=== PATIENT | male | born 1950 | race Caucasian/White ===

== ENCOUNTER 2019-04-16 21:32 | Inpatient (IN) | payer MEDICARE, OTHER ==
[~2019-04-16] VITALS: Ht 165.1 cm; Wt 87.3 kg
[~2019-04-16 21:32] MED LIST: ALLERGY SHOT IM; HYDROCODONE-AP1 EAC6 PO; KEFLEX500 MG PO; TOPROL XL25 MG PO; XARELTO10 MG PO; XARELTO15 MG PO; ZYRTEC10 MG PO
[2019-04-16 21:38] VITALS: BP 127/76
[2019-04-16] MEDS ORDERED: ELIQUIS2.5 MG PO (21:45)
[2019-04-16] MEDS ORDERED: LIPITOR 20 MG T20 M1 PO (21:45)
[2019-04-16] MEDS ORDERED: OLOPATADINE H30.5 GM (21:48)
[2019-04-16] MEDS ORDERED: FLUNISOLIDE25 ML NASAL (21:48)
[2019-04-16] MEDS ORDERED: FLONASE 0.05%50 MCG NARES (21:48)
[2019-04-16 21:54] LABS: ABSOLUTE BASOPHILS 0.1 thou/uL (0.0-0.2); ABSOLUTE LYMPHOCYTES 1.7 thou/uL (0.8-5.3); ABSOLUTE MONOCYTES 0.8 thou/uL (0.0-1.2); ABSOLUTE NEUTROPHILS 4.2 thou/uL (1.6-8.1); BASOPHILS 1.1 %; EOSINOPHILS 0.7 %; HEMATOCRIT 42.8 % (42.0-52.0); HEMOGLOBIN 15.2 gm/dL (14.0-18.0); LYMPHOCYTES 25.1 %; MCHC 35.5 g/dL (28.0-37.0); MCV 89.9 fL (80.0-100.0); MONOCYTES 11.3 %; MPV 7.9 fl. (7.2-11.1); NUCLEATED RBCS 0 /100WBC; PLATELET COUNT* 152 thou/uL (150-400); POLYS 61.8 %; RBC 4.77 mil/uL (4.50-6.00); RDW-CV 14.1 % (10.5-14.5); WBC 6.7 thou/uL (4.0-11.0)
[2019-04-16 22:10] LABS: APTT 28.9 Seconds (25.0-31.3); PROTIME 10.4 Seconds (9.20-11.50)
[2019-04-16 22:14] LABS: CALCIUM 9.8 mg/dL (8.5-10.1); POTASSIUM 3.6 mmol/L (3.5-5.1)
[2019-04-16 22:25] LABS: ALBUMIN 4.2 g/dL (3.4-5.0); TOTAL BILIRUBIN 0.6 mg/dL (<0.1-1.0); TOTAL PROTEIN 8.2 g/dL (6.4-8.2)
[2019-04-16 23:43] VITALS: BP 157/103
[2019-04-17 00:03] VITALS: BP 158/93
[2019-04-17 04:00] VITALS: BP 126/77
--- NOTE | 2019-04-17 07:42 | NUR ---
RECEIEVED PT FROM ED PER CART AT APPROX 0003. PT IS AWAKE AND ORIENTED X4. VSS ON 2L OF O2/NC. PT IS TRACING AFIB ON THE MALT HOUSE LOADER, RATE IS MORE CONTROLLED-CARDIZEM DRIP INFUSING AT 10ml/HR. PT IS ADVISED ON THE USE OF CALL LIGHT AND ON ROOM SET UP. FALL PRECAUTIONS IN PLACE. PT IS CLOSELY MONITORED.
[2019-04-17 08:00] VITALS: BP 127/77; BP 132/64
[2019-04-17 10:23] LABS: CHOLESTEROL 182 mg/dL (<200); HDL CHOLESTEROL 83 mg/dL (>40); LDL CHOLESTEROL 77 mg/dL (<100); TC:HDL 2.2 Ratio (Not establshd); TRIGLYCERIDE 110 mg/dL (<150); VLDL 22 mg/dL (<40)
[2019-04-17 10:31] LABS: SERUM ASSESSMENT Clear
--- NOTE | 2019-04-17 11:03 | EKG ---
[place] [address] ELECTROCARDIOGRAM REPORT Name: VISHAL BRISCOE Room: [address] ADM IN .R.#: [id number] Admission: 04/16/19 Attend Phys: John Greenberg MD Discharge: Date of : 52 Report #: [id number] THIS REPORT FOR: //name// [facility] ED Test Date: 2019-04-16 Test Time: 21:39:06 Pat Name: VISHAL BRISCOE Department: Room: [facility] Gender: M Sales Representative Education Courses: [place] : 1950 Requested By: Martine Tai Order Number: [id number] MD: Felipe Perdue Measurements Intervals [place] Rate: 149 P: NM: QRS: -65 QRSD: 107 T: 46 QT: 305 QTc: 480 Interpretive Statements Atrial fibrillation Left anterior fascicular block Abnormal R-wave progression, late transition Borderline prolonged QT interval Compared to ECG 10/13/2013 13:22:01 Sinus tachycardia no longer present Electronically Signed On 04-17-2019 11:03:02 BONDERIZER OPERATOR by Felipe Perdue [email or web address] <ELECTRONICALLY SIGNED> By: Felipe Perdue MD, FACC 04/17/19 1103 38 38 Felipe Perdue MD, FAC /EPI
--- NOTE | 2019-04-17 14:10 | NUR ---
MET WITH PT AND TO DISCUSS HOME SITUATION/DC PLANNING. PT LIVES WITH . IS INDEPENDENT AND ACTIVE, USES CPAP AND O2 THRU [facility] BUT STATES OWNS THE CONCENTRATOR NOW. HASN'T HAD HH OR BEEN TO SNF. HE PLANS TO RETURN HOME AT DC. DISCUSSED [employer] FOR DISCOUNTS ON SCRIPTS AND GAVE INFO ON [facility] FOR AFIB. WILL FOLLOW
--- NOTE | 2019-04-17 15:03 | 2DMMODE ---
[place] [address] 2 D/M-MODE ECHOCARDIOGRAM Name: RACHNAVISHAL J Room: [address] IN [facility]#: [id number] Admission: 04/16/19 Attend Phys: John Greenberg, Discharge: Date of : 52 Date of Service: 04/17/19 1502 Report #: [id number] THIS REPORT FOR: //name// APPROVED REPORT Study performed: 04/17/2019 10:31:10 EXAM: Comprehensive 2D, Doppler, and color-flow Echocardiogram Patient Location: In-Patient Room #: [facility] BSA: 1.91 HR: 63 bpm BP: 132/64 mmHg Rhythm: NSR Other Information Study Quality: Good Indications Cardiomegaly Tachycardia 2D Dimensions IVSd: 13.85 (7-11mm) LVOT Diam: 21.14 (18-24mm) LVDd: 44.73 mm PWd: 10.16 (7-11mm) Ascending Ao: 36.25 (22-36mm) LVDs: 27.50 (25-40mm) Aortic Root: 34.95 mm Volumes Left Atrial Volume (Systole) LA ESV Index: 26.90 mL/m2 Aortic Valve AoV Peak Cedric.: 1.16 m/s AO Peak Gr.: 5.39 mmHg LVOT Max P.72 mmHg AO Mean Gr.: 3.16 mmHg LVOT Mean P.29 mmHg LVOT Max V: 0.83 m/s AO V2 VTI: 26.54 cm LVOT Mean V: 0.52 m/s WARD (VTI): 2.56 cm2 LVOT V1 VTI: 19.37 cm Mitral Valve E/A Ratio: 1.00 MV Decel. Time: 196.83 [place] [address] 2 D/M-MODE ECHOCARDIOGRAM Name: VISHAL BRISCOE Room: [address] IN .R.#: [id number] Admission: 04/16/19 Attend Phys: John Greenberg, Discharge: Date of : 52 Date of Service: 04/17/19 1502 Report #: [id number] MV E Max Cedric.: 0.76 m/s MV PHT: 57.08 ms MVA (PHT): 3.85 cm2 TDI E/Lateral E': 7.60 E/Medial E': 9.50 Medial E' Cedric.: 0.08 m/s Lateral E' Cedric.: 0.10 m/s Pulmonary Valve PV Peak Cedric.: 0.65 m/s PV Peak Gr.: 1.71 mmHg Tricuspid Valve RAP Estimate: 5.00 mmHg TR Peak Gr.: 25.85 mmHg RVSP: 30.00 mmHg PA Pressure: 30.00 mmHg Left Ventricle The left ventricle is normal size. There is normal LV segmental wall motion. There is normal left ventricular wall thickness. Left ventricular systolic function is normal. LVEF is 55-60%. Transmitral Doppler flow pattern suggests impaired LV relaxation. Right Ventricle Right ventricle is mildly dilated. The right ventricular systolic function is normal. Atria Left atrium is mildly dilated. Right atrium is mildly dilated. Aortic Valve The aortic valve is normal in structure. No aortic regurgitation is present. There is no aortic valvular stenosis. Mitral Valve The mitral valve is normal in structure. There is no mitral valve regurgitation noted. No evidence of mitral valve stenosis. Tricuspid Valve The tricuspid valve is normal in structure. Trace tricuspid regurgitation. The RVSP is 30-35 mmHg. Pulmonic Valve The pulmonary valve is normal in structure. There is no pulmonic [place] [address] 2 D/M-MODE ECHOCARDIOGRAM Name: VISHAL BRISCOE Room: [address] IN [facility]#: [id number] Admission: 04/16/19 Attend Phys: John Greenberg, Discharge: Date of : 52 Date of Service: 04/17/19 1502 Report #: [id number] Great Vessels The aortic root is normal in size. IVC is normal in size and collapses >50% with inspiration. Pericardium There is no pericardial effusion. <Conclusion> The left ventricle is normal size. There is normal left ventricular wall thickness. Left ventricular systolic function is normal. LVEF is 55-60%. Transmitral Doppler flow pattern suggests impaired LV relaxation. Left atrium is mildly dilated. Right atrium is mildly dilated. Right ventricle is mildly dilated. Trace tricuspid regurgitation. The RVSP is 30-35 mmHg. IVC is normal in size and collapses >50% with inspiration. <ELECTRONICALLY SIGNED> By: Felipe Perdue MD, FACC 04/17/19 1502 1502 150 Felipe Perdue MD, FACC /INF
[2019-04-17 16:49] VITALS: BP 137/77
[2019-04-17 20:00] VITALS: BP 153/87
[2019-04-18] VITALS: BP 153/88
--- NOTE | 2019-04-18 03:42 | NUR ---
ASSUMED PT CARE AT APPROX 1930. PT IS AWAKE AND ORIENTED X4. VSS ON 2L OF O2, PT WEARS HOME CPAP AT HS. PT DENIES PAIN/DISCOMFORT. PE ELECTRICAL ENGINEER IN PLACE TRACING SR. PT IS ABLE TO SLEEP MOST OF THE NIGHT. CALL LIGHT WITHIN REACH. HOURLY ROUNDING DONE FOR PT SAFETY.
[2019-04-18 04:00] VITALS: BP 151/95
[2019-04-18 07:59] VITALS: BP 144/88
--- NOTE | 2019-04-18 09:12 | NUR ---
ASSUMED CARE OF PT THIS AM AROUND 0715- FLEECER IN PLACE ORDERED, TRACING SR- UPON ASSESSMENT PT NOTED TO BE RESTING IN BED- PT A&O X4- CONTINENT OF BOWEL AND BLADDER- UP AD-CARO IN ROOM, STEADY GAIT NOTED-DIMINISHED LUNG SOUNDS NOTED, RESP EVEN AND UN-LABORED- VSS, O2 SAT 95% ON CPAP THIS AM- ABD SOFT/ROUND/NON-TENDER, BS X4 QUADS- LAST BM REPORTED 04/17/19- IV NOTED TO LEFT AC INTACT AND SL- SHOWER NOTED THIS AM- GOOD PO INTAKE NOTED THIS AM WITH BREAKFAST- PT DENIES ANY C/O PAIN/DISCOMFORT AT THIS TIME-CALL LIGHT AND PERSONAL BELONGINGS WITH IN REACH- PT MAKES NEEDS KNOWN- ALL NEEDS MET AT THIS TIME-WCTM
[2019-04-18 12:00] VITALS: BP 145/98
[2019-04-18] MEDS ORDERED: SORINE 80 MG TA80 M1 PO (12:11)
[2019-04-18] MEDS ORDERED: ELIQUIS5 MG PO (12:11)
--- NOTE | 2019-04-18 12:18 | NUR ---
SPOKE WITH PT AND RE: SCRIPTS AND TO CALL CM IF HAVE ISSUES GETTING THEM FILLE IE; PRIOR AUTH ISSUES. DID TELL PT COST OF SOTOLOL ON [employer]. NO OTHER DC NEEDS ID'D
[2019-04-18 14:27] VITALS: BP 145/98
[2019-04-18] MEDS ORDERED: CARDIZEM CD 18180 M3 PO ×2 (15:52→15:58)
--- NOTE | 2019-04-18 17:01 | EKG ---
[place] [address] ELECTROCARDIOGRAM REPORT Name: VISHAL BRISCOE Room: [address] ADM IN M.R.#: [id number] Admission: 04/16/19 Attend Phys: John Greenberg MD Discharge: Date of : 52 Report #: [id number] THIS REPORT FOR: //name// [facility] Test Date: 2019-04-18 Test Time: 09:43:09 Pat Name: VISHAL BRISCOE Department: Room: [address] Gender: M Stave Mill Hand: RT : 1950 Requested By: Sigrid Mckeon Order Number: [id number] MD: Felipe Perdue Measurements Intervals [place] Rate: 75 P: 26 AL: 135 QRS: -70 QRSD: 115 T: -18 QT: 399 QTc: 446 Interpretive Statements Sinus rhythm Left anterior fascicular block Borderline T abnormalities, inferior leads Minimal ST elevation, anterior leads Compared to ECG 04/16/2019 21:39:06 T-wave abnormality now present ST (T wave) deviation now present Atrial fibrillation no longer present Electronically Signed On 04-18-2019 17:00:54 COLLECTIONS ANALYST by Felipe Perdue [email or web address] <ELECTRONICALLY SIGNED> By: Felipe Perdue MD, FACC 04/18/19 1700 0943 0943 Felipe Perdue MD, FACC /EPI
== END 2019-04-18 17:30 | disposition home or self-care (01) | DRG 309 ==
LOC: M.ERS 21:32 → M.TBA-ER 22:35 → M.2W 22:35
PROVIDERS: Internal Medicine; Personal Emergency Response Attendant; Registered Nurse; ADMIT Internal Medicine
PROC: 5A09357 Assistance with Respiratory Ventilation, Less than 24 Consecutive Hours, Continuous Positive Airway Pressure (ICD-10-PCS; principal; 2019-04-17)
PROC: 5A09357 Assistance with Respiratory Ventilation, Less than 24 Consecutive Hours, Continuous Positive Airway Pressure (ICD-10-PCS; 2019-04-18)
DX: I48.0 Paroxysmal atrial fibrillation (principal); D68.69 Other thrombophilia; G47.33 Obstructive sleep apnea (adult) (pediatric); E78.5 Hyperlipidemia, unspecified; E78.00 Pure hypercholesterolemia, unspecified; Z86.711 Personal history of pulmonary embolism; Z86.718 Personal history of other venous thrombosis and embolism; Z87.891 Personal history of nicotine dependence; Z79.899 Other long term (current) drug therapy

== ENCOUNTER 2019-10-13 14:17 | Inpatient (IN) | payer MEDICARE, OTHER ==
[~2019-10-13] VITALS: Ht 165.1 cm; Wt 93.0 kg
[~2019-10-13 14:17] MED LIST changes: +CARDIZEM CD 18180 M3 PO; +ELIQUIS2.5 MG PO; +ELIQUIS5 MG PO; +FLONASE 0.05%50 MCG NARES; +FLUNISOLIDE25 ML NASAL; +LIPITOR 20 MG T20 M1 PO; +OLOPATADINE H30.5 GM; +SORINE 80 MG TA80 M1 PO
[2019-10-13 14:23] VITALS: BP 161/103
[2019-10-13] MEDS ORDERED: CLARITIN10 M3 PO (14:36)
[2019-10-13 14:40] LABS: ABSOLUTE EOSINOPHILS 0.1 thou/uL (0.0-0.7); ABSOLUTE MONOCYTES 0.5 thou/uL (0.0-1.2); ABSOLUTE NEUTROPHILS 2.9 thou/uL (1.6-8.1); BASOPHILS 0.8 %; EOSINOPHILS 1.8 %; HEMATOCRIT 43.8 % (42.0-52.0); HEMOGLOBIN 15.7 gm/dL (14.0-18.0); LYMPHOCYTES 21.1 %; MCH 33.4 pg (26.0-34.0); MCHC 35.8 g/dL (28.0-37.0); MCV 93.4 fL (80.0-100.0); MONOCYTES 11.3 %; MPV 7.9 fl. (7.2-11.1); NUCLEATED RBCS 0 /100WBC; PLATELET COUNT* 146 thou/uL (150-400); RBC 4.69 mil/uL (4.50-6.00); RDW-CV 14.4 % (10.5-14.5); WBC 4.5 thou/uL (4.0-11.0)
[2019-10-13 14:54] LABS: CALCIUM 9.1 mg/dL (8.5-10.1); CREATININE 1.1 mg/dL (0.6-1.3)
[2019-10-13 14:57] LABS: MAGNESIUM 1.6 mg/dL (1.8-2.4); TOTAL BILIRUBIN 0.5 mg/dL (<0.1-1.0); TOTAL PROTEIN 8.5 g/dL (6.4-8.2)
[2019-10-13 17:20] VITALS: BP 156/97
[2019-10-13 17:43] VITALS: BP 154/105
[2019-10-13] MEDS ORDERED: CENTRUM MEN'S1 EACH PO (17:57)
--- NOTE | 2019-10-13 18:42 | NUR ---
ASSUMED CARE OF PT FROM ER. PT IS ALERT AND HAS NO CO OF PAIN OR NAUSEA. PT WAS EDUCATED ON FALL SAFETY AND USING THE CALL LIGHT FOR ASSISTANCE. WILL CONTINUE TO MONITOR.
[2019-10-13 20:00] VITALS: BP 179/95
[2019-10-13 23:56] VITALS: BP 173/96
[2019-10-14 04:00] VITALS: BP 174/90
[2019-10-14 04:18] LABS: ABSOLUTE EOSINOPHILS 0.2 thou/uL (0.0-0.7); ABSOLUTE LYMPHOCYTES 1.4 thou/uL (0.8-5.3); ABSOLUTE MONOCYTES 0.7 thou/uL (0.0-1.2); ABSOLUTE NEUTROPHILS 3.6 thou/uL (1.6-8.1); BASOPHILS 0.7 %; EOSINOPHILS 3.5 %; HEMATOCRIT 40.9 % (42.0-52.0); HEMOGLOBIN 14.6 gm/dL (14.0-18.0); LYMPHOCYTES 23.7 %; MCH 33.2 pg (26.0-34.0); MCHC 35.7 g/dL (28.0-37.0); MONOCYTES 11.6 %; MPV 8.1 fl. (7.2-11.1); NUCLEATED RBCS 0 /100WBC; PLATELET COUNT* 133 thou/uL (150-400); POLYS 60.5 %; RDW-CV 13.9 % (10.5-14.5); WBC 5.9 thou/uL (4.0-11.0)
[2019-10-14 04:36] LABS: ALBUMIN 3.7 g/dL (3.4-5.0); CALCIUM 8.7 mg/dL (8.5-10.1); CREATININE 0.9 mg/dL (0.6-1.3); POTASSIUM 3.5 mmol/L (3.5-5.1); TOTAL BILIRUBIN 0.9 mg/dL (<0.1-1.0); TOTAL PROTEIN 7.5 g/dL (6.4-8.2)
--- NOTE | 2019-10-14 04:50 | NUR ---
ASSUMED PT CARE AT 1999. AOX4, UP AD CARO, DENIES CHEST PAIN. O2 SAT 90'S 2L NC. PT USE CPAP AT NIGHT, BUT DIDNT BRING HIS MACHINE. PT STATE UNABLE TO GET SLEEP WITHOUT A CPAP. PAGED , ORDERED RECEIVED. RT SETUP AN AUTOPAP. PT BP IS HIGH. 1X HYDRALAZINE GIVEN ORDERED. PT NPO FOR US ABDOMEN, CALL LIGHT WITHIN REACH, WILL CONTINUE TO MONITOR.
[2019-10-14 08:00] VITALS: BP 160/92
--- NOTE | 2019-10-14 11:06 | EKG ---
[place] [address] ELECTROCARDIOGRAM REPORT Name: VISHAL BRISCOE Room: [address] ADM IN .R.#: [id number] Admission: 10/14/19 Attend Phys: John Greenberg, Discharge: Date of : 52 Date of Service: 10/13/19 1421 Report #: [id number] THIS REPORT FOR: //name// [facility] ED Test Date: 2019-10-13 Test Time: 14:21:50 Pat Name: VISHAL BRISCOE Department: Room: [facility] Gender: M Butcher Helper: : 1950 Requested By: Doyle Hermosillo Order Number: [id number] MD: Chris Mcclure Measurements Intervals [place] Rate: 113 P: 46 ID: 154 QRS: -94 QRSD: 136 T: 12 QT: 352 QTc: 483 Interpretive Statements Sinus tachycardia RBBB and LAFB Borderline ST elevation, lateral leads Compared to ECG 04/18/2019 09:43:09 Right bundle-branch block now present Sinus rate has increased T-wave abnormality no longer present ST (T wave) deviation still present Electronically Signed On 10-14-2019 11:04:23 CDT by Chris Mcclure [email or web address] <ELECTRONICALLY SIGNED> By: Chris Mcclure MD, [facility] 10/14/19 1104 1421 1421 Chris Mcclure MD, [facility] /EPI
--- NOTE | 2019-10-14 11:07 | EKG ---
[place] [address] ELECTROCARDIOGRAM REPORT Name: VISHAL BRISCOE Room: [address] ADM IN .R.#: [id number] Admission: 10/14/19 Attend Phys: John Greenberg, Discharge: Date of : 52 Date of Service: 10/13/19 1543 Report #: [id number] THIS REPORT FOR: //name// [facility] ED Test Date: 2019-10-13 Test Time: 15:43:34 Pat Name: VISHAL BRISCOE Department: Room: [facility] Gender: M Qa Reviewer: : 1950 Requested By: Doyle Hermosillo Order Number: [id number] MD: Chris Mcclure Measurements Intervals [place] Rate: 106 P: 44 NM: 150 QRS: -92 QRSD: 137 T: -6 QT: 370 QTc: 492 Interpretive Statements Sinus tachycardia RBBB and LAFB Compared to ECG 04/18/2019 09:43:09 Right bundle-branch block now present Sinus rate has increased T-wave abnormality no longer present ST (T wave) deviation no longer present Electronically Signed On 10-14-2019 11:05:31 CDT by Chris Mcclure [email or web address] <ELECTRONICALLY SIGNED> By: Chris Mcclure MD, FAC 10/14/19 1105 1543 1543 Chris Mcclure MD, [facility] /EPI
--- NOTE | 2019-10-14 11:12 | NUR ---
2880 ASSUMED CARE OF PATIENT. PLEASE SEE DOCUMENTED ASSESSMENT. OT IS NPO FOR ABDOMINAL ULTRASOUND
[2019-10-14 12:00] VITALS: BP 147/83
[2019-10-14 16:00] VITALS: BP 161/86
--- NOTE | 2019-10-14 17:33 | NUR ---
PATIENT PROGRESSING TOWARDS GOALS. ABDOMINAL ULTRASOUND COMPLETED. ON ROOM AIR. USES AUTOPAP AT NIGHT. NO CHEST PAIN. DIET RESUMED. PLAN GOR ECHO IN AM.
[2019-10-14 20:00] VITALS: BP 163/92
[2019-10-15] VITALS: BP 157/95
[2019-10-15 03:33] VITALS: BP 144/89
[2019-10-15 04:59] LABS: ABSOLUTE LYMPHOCYTES 1.3 thou/uL (0.8-5.3); HEMOGLOBIN 15.3 gm/dL (14.0-18.0)
[2019-10-15 05:18] LABS: ALBUMIN 3.7 g/dL (3.4-5.0); CALCIUM 8.7 mg/dL (8.5-10.1); CREATININE 1.1 mg/dL (0.6-1.3); POTASSIUM 3.5 mmol/L (3.5-5.1); TOTAL PROTEIN 7.8 g/dL (6.4-8.2)
[2019-10-15 05:30] LABS: ABSOLUTE BASOPHILS 0.1 thou/uL (0.0-0.2); ABSOLUTE EOSINOPHILS 0.2 thou/uL (0.0-0.7); ABSOLUTE MONOCYTES 0.7 thou/uL (0.0-1.2); ABSOLUTE NEUTROPHILS 3.3 thou/uL (1.6-8.1); BASOPHILS 1.3 %; EOSINOPHILS 3.2 %; HEMATOCRIT 43.4 % (42.0-52.0); LYMPHOCYTES 23.1 %; MCH 33.1 pg (26.0-34.0); MCHC 35.2 g/dL (28.0-37.0); MCV 93.9 fL (80.0-100.0); MONOCYTES 12.8 %; MPV 8.8 fl. (7.2-11.1); NUCLEATED RBCS 0 /100WBC; PLATELET COUNT* 142 thou/uL (150-400); POLYS 59.6 %; RBC 4.62 mil/uL (4.50-6.00); RDW-CV 14.5 % (10.5-14.5); WBC 5.6 thou/uL (4.0-11.0)
--- NOTE | 2019-10-15 07:21 | NUR ---
Shift uneventful. Pt is aox4, running SR w/ BBB on telemetry, respirations are even and unlabored on 2L NC. Pt is medically stable at this time.
[2019-10-15 07:59] VITALS: BP 144/92
--- NOTE | 2019-10-15 09:03 | NUR ---
ASSUMED CARE OF PT THIS AM AROUND 0715- MAIL LIST LIBRARIAN IN PLACE ORDERED, TRACING SR/BBB- UPON ASSESSMENT PT NOTED TO BE RESTING IN BED SLEEPING- PT A&O X4- CONT OF BOWEL AND BLADDER- UP AD-CARO IN ROOM, STEADY GAIT NOTED- DIMINISHED LUNG SOUNDS NOTED, DYSPNEA NOTED ON EXERTION- VSS, O2 SAT 97% ON CPAP THIS AM- ABD SOFT/ROUND/NON-TENDER, BS X4 QUADS- LAST BM REPORTED 10/14/19- IV NOTED TO RIGHT AND LEFT AC INTACT AND SL- GOOD PO INTAKE NOTED THIS AM WITH BREAKFAST- PT DENIES ANY C/O PAIN/DISCOMFRT AT THIS TIME- CALL LIGHT AND PERSONAL BELONGINGS WITH IN REACH- PT MAKES NEEDS KNOWN- ALL NEEDS MET AT THIS TIME-WCTM
[2019-10-15] MEDS ORDERED: ELIQUIS5 MG PO (09:44)
[2019-10-15 09:45] VITALS: BP 144/92
[2019-10-15 12:11] VITALS: BP 137/88
--- NOTE | 2019-10-15 13:03 | 2DMMODE ---
[place] [address] 2 D/M-MODE ECHOCARDIOGRAM Name: VISHAL BRISCOE Makayla Room: [address] ADM IN M.R.#: [id number] Admission: 10/14/19 Attend Phys: John Greenberg, Discharge: Date of : 52 Date of Service: 10/15/19 1301 Report #: [id number] THIS REPORT FOR: cc: Ruibn Rodriguez Brad DO Blick,Ajay Webster MD [facility] ~ APPROVED REPORT Study performed: 10/15/2019 09:46:50 EXAM: Comprehensive 2D, Doppler, and color-flow Echocardiogram Patient Location: In-Patient BSA: 2.00 HR: 86 bpm BP: 144/92 mmHg Other Information Study Quality: Fair Indications Chest Pain 2D Dimensions IVSd: 9.50 (7-11mm) LVOT Diam: 19.15 (18-24mm) LVDd: 55.22 mm PWd: 12.00 (7-11mm) Ascending Ao: 35.10 (22-36mm) LVDs: 30.07 (25-40mm) Aortic Root: 32.54 mm Volumes Left Atrial Volume (Systole) LA ESV Index: 17.50 mL/m2 Aortic Valve AoV Peak Cedric.: 1.14 m/s AO Peak Gr.: 5.22 mmHg LVOT Max P.56 mmHg AO Mean Gr.: 2.81 mmHg LVOT Mean P.82 mmHg LVOT Max V: 0.94 m/s AO V2 VTI: 19.87 cm LVOT Mean V: 0.63 m/s WARD (VTI): 2.33 cm2 LVOT V1 VTI: 16.08 cm Mitral Valve E/A Ratio: 0.58 [place] [address] 2 D/M-MODE ECHOCARDIOGRAM Name: VISHAL BRICSOE Room: [address] IN M.R.#: [id number] Admission: 10/14/19 Attend Phys: John Greenberg, Discharge: Date of : 52 Date of Service: 10/15/19 1301 Report #: [id number] MV Decel. Time: 269.35 ms MV E Max Cedric.: 0.56 m/s MV PHT: 78.11 ms MVA (PHT): 2.82 cm2 TDI E/Lateral E': 8.00 E/Medial E': 11.20 Medial E' Cedric.: 0.05 m/s Lateral E' Cedric.: 0.07 m/s Pulmonary Valve PV Peak Cedric.: 0.80 m/s PV Peak Gr.: 2.59 mmHg Tricuspid Valve RAP Estimate: 5.00 mmHg TR Peak Gr.: 26.52 mmHg RVSP: 31.52 mmHg PA Pressure: 31.52 mmHg Left Ventricle The left ventricle is normal size. There is normal LV segmental wall motion. There is normal left ventricular wall thickness. Left ventricular systolic function is normal. The left ventricular ejection fraction is within the normal range. LVEF is 60-65%. Grade I - abnormal relaxation pattern. Right Ventricle The right ventricle is normal size. The right ventricular systolic function is normal. Atria The left atrium size is normal. Lipomatus atrial septal hypertrophy is present. The right atrium size is normal. Aortic Valve The aortic valve is not well visualized. No aortic regurgitation is present. There is no aortic valvular stenosis. Mitral Valve The mitral valve is normal in structure. Trace mitral regurgitation. No evidence of mitral valve stenosis. Tricuspid Valve The tricuspid valve is normal in structure. Trace tricuspid regurgitation[place] [address] 2 D/M-MODE ECHOCARDIOGRAM Name: VISHAL BRISCOE Room: [address] IN [facility]#: [id number] Admission: 10/14/19 Attend Phys: John Greenberg, Discharge: Date of : 52 Date of Service: 10/15/19 1301 Report #: [id number] Pulmonic valve is not well visualized. There is no pulmonic valvular regurgitation. Great Vessels The aortic root is normal in size. IVC is normal in size and collapses >50% with inspiration. Pericardium There is no pericardial effusion. <Conclusion> Left ventricular systolic function is normal. The left ventricular ejection fraction is within the normal range. <ELECTRONICALLY SIGNED> By: Ajay Boateng MD, [facility] 10/15/19 1301 1301 1301 Ajay Boateng MD, FAC /INF
--- NOTE | 2019-10-15 13:10 | NUR ---
PT DISCHARGED WITH ALL BELONGINGS AND PAPERWORK VIA WHEELCHAIR WITH NURSING STAFF TO SPOUSE OWN PERSONAL VEHICLE.
== END 2019-10-15 13:10 | disposition home or self-care (01) | DRG 175 ==
LOC: M.ERS 14:17 → M.TBA-ER 16:05 → M.2W 17:38
PROVIDERS: Emergency Medicine Emergency Medical Services; ADMIT Internal Medicine
PROC: 5A09357 Assistance with Respiratory Ventilation, Less than 24 Consecutive Hours, Continuous Positive Airway Pressure (ICD-10-PCS; principal; 2019-10-14)
PROC: 5A09357 Assistance with Respiratory Ventilation, Less than 24 Consecutive Hours, Continuous Positive Airway Pressure (ICD-10-PCS; 2019-10-15)
DX: I26.99 Other pulmonary embolism without acute cor pulmonale (principal); J96.01 Acute respiratory failure with hypoxia; D68.51 Activated protein C resistance; D68.59 Other primary thrombophilia; T45.515A Adverse effect of anticoagulants, initial encounter; K76.0 Fatty (change of) liver, not elsewhere classified; E78.00 Pure hypercholesterolemia, unspecified; Z86.718 Personal history of other venous thrombosis and embolism; Z79.01 Long term (current) use of anticoagulants; Z79.899 Other long term (current) drug therapy; Z72.89 Other problems related to lifestyle; Z87.891 Personal history of nicotine dependence

== ENCOUNTER 2020-03-05 11:51 | Emergency (ER) | payer MEDICARE, OTHER ==
[~2020-03-05] VITALS: Ht 165.1 cm; Wt 93.0 kg
[~2020-03-05 11:51] MED LIST changes: +CENTRUM MEN'S1 EACH PO; +CLARITIN10 M3 PO
[2020-03-05] MEDS ORDERED: DILTIAZEM ER180 M2 PO (12:04)
[2020-03-05] MEDS ORDERED: STOOL SOFTENER100 MG PO (12:04)
[2020-03-05] MEDS ORDERED: OXYBUTYNIN 5 MG5 M2 PO (12:05)
[2020-03-05] MEDS ORDERED: TRAMADOL 50 MG50 MG PO (12:05)
[2020-03-05] MEDS ORDERED: PERCOCET 5-3251 EACH PO (12:05)
[2020-03-05 12:53] LABS: ABSOLUTE BASOPHILS 0.1 thou/uL (0.0-0.2); ABSOLUTE EOSINOPHILS 0.1 thou/uL (0.0-0.7); ABSOLUTE LYMPHOCYTES 1.2 thou/uL (0.8-5.3); ABSOLUTE MONOCYTES 0.7 thou/uL (0.0-1.2); ABSOLUTE NEUTROPHILS 4.6 thou/uL (1.6-8.1); BASOPHILS 1.2 %; EOSINOPHILS 1.5 %; HEMATOCRIT 45.1 % (42.0-52.0); HEMOGLOBIN 15.9 gm/dL (14.0-18.0); LYMPHOCYTES 17.4 %; MCH 33.3 pg (26.0-34.0); MCHC 35.1 g/dL (28.0-37.0); MCV 94.9 fL (80.0-100.0); MONOCYTES 11.1 %; MPV 7.6 fl. (7.2-11.1); NUCLEATED RBCS 0 /100WBC; PLATELET COUNT* 156 thou/uL (150-400); POLYS 68.8 %; RBC 4.76 mil/uL (4.50-6.00); RDW-CV 14.3 % (10.5-14.5); WBC 6.7 thou/uL (4.0-11.0)
[2020-03-05 12:58] LABS: CALCIUM 9.8 mg/dL (8.5-10.1); POTASSIUM 3.8 mmol/L (3.5-5.1)
[2020-03-05 12:59] LABS: INR 1.1; PROTIME 10.9 Seconds (9.20-11.50)
[2020-03-05 13:02] LABS: ALBUMIN 4.1 g/dL (3.4-5.0); TOTAL BILIRUBIN 1.2 mg/dL (<0.1-1.0); TOTAL PROTEIN 8.3 g/dL (6.4-8.2)
[2020-03-05] MEDS ORDERED: MAGOX 400400 MG PO (13:35)
[2020-03-05] MEDS ORDERED: HYDROCODON-ACE1 EAC8 PO (13:35)
[2020-03-05] MEDS ORDERED: FLEXERIL PO (13:35)
[2020-03-05] MEDS ORDERED: PREDNISONE 10 M10 MG PO (13:35)
[2020-03-05 13:49] VITALS: BP 171/108
[2020-03-05 13:55] LABS: ESR (SEDRATE) 15 mm/hr (0-20)
== END 2020-03-05 13:50 | disposition home or self-care (01) ==
LOC: M.ERS 11:51
PROVIDERS: Physician Assistant
DX: M51.36 Other intervertebral disc degeneration, lumbar region (principal); M79.18 Myalgia, other site; R74.01 Elevation of levels of liver transaminase levels; G62.9 Polyneuropathy, unspecified; E78.00 Pure hypercholesterolemia, unspecified; Z85.46 Personal history of malignant neoplasm of prostate; Z86.718 Personal history of other venous thrombosis and embolism; Z86.711 Personal history of pulmonary embolism

== ENCOUNTER 2020-03-10 00:04 | Emergency (ER) | payer MEDICARE, OTHER ==
[~2020-03-10] VITALS: Ht 165.1 cm; Wt 89.8 kg
[~2020-03-10 00:04] MED LIST changes: +DILTIAZEM ER180 M2 PO; +FLEXERIL PO; +HYDROCODON-ACE1 EAC8 PO; +MAGOX 400400 MG PO; +OXYBUTYNIN 5 MG5 M2 PO; +PERCOCET 5-3251 EACH PO; +PREDNISONE 10 M10 MG PO; +STOOL SOFTENER100 MG PO; +TRAMADOL 50 MG50 MG PO
[2020-03-10] MEDS ORDERED: PERCOCET 5-3251 EACH PO (00:38)
[2020-03-10 00:56] LABS: ABSOLUTE BASOPHILS 0.1 thou/uL (0.0-0.2); ABSOLUTE EOSINOPHILS 0.1 thou/uL (0.0-0.7); ABSOLUTE LYMPHOCYTES 1.5 thou/uL (0.8-5.3); ABSOLUTE MONOCYTES 0.6 thou/uL (0.0-1.2); ABSOLUTE NEUTROPHILS 2.7 thou/uL (1.6-8.1); BASOPHILS 1.1 %; EOSINOPHILS 1.2 %; HEMATOCRIT 40.4 % (42.0-52.0); HEMOGLOBIN 14.1 gm/dL (14.0-18.0); LYMPHOCYTES 30.2 %; MCH 33.5 pg (26.0-34.0); MCHC 34.9 g/dL (28.0-37.0); MONOCYTES 11.7 %; MPV 7.8 fl. (7.2-11.1); NUCLEATED RBCS 0 /100WBC; PLATELET COUNT* 130 thou/uL (150-400); POLYS 55.8 %; RDW-CV 13.9 % (10.5-14.5); WBC 4.8 thou/uL (4.0-11.0)
[2020-03-10 01:00] LABS: CALCIUM 8.9 mg/dL (8.5-10.1); POTASSIUM 3.6 mmol/L (3.5-5.1)
[2020-03-10 01:05] LABS: ALBUMIN 3.6 g/dL (3.4-5.0); TOTAL BILIRUBIN 0.3 mg/dL (<0.1-1.0); TOTAL PROTEIN 7.2 g/dL (6.4-8.2)
[2020-03-10] MEDS ORDERED: VALIUM5 MG PO (02:39)
[2020-03-10 02:50] VITALS: BP 172/99
== END 2020-03-10 02:50 | disposition home or self-care (01) ==
LOC: M.ERS 00:04
PROVIDERS: Family Medicine
DX: M79.604 Pain in right leg (principal); M79.605 Pain in left leg; E78.00 Pure hypercholesterolemia, unspecified; Z86.711 Personal history of pulmonary embolism; Z86.718 Personal history of other venous thrombosis and embolism; Z85.46 Personal history of malignant neoplasm of prostate

== ENCOUNTER → 2020-03-31 | Outpatient (CLI) | payer MEDICARE, OTHER ==
[~2020-03-31] MED LIST changes: +DURAGESIC1 EAC4 TRANSDERM; +VALIUM5 MG PO
== END ==
LOC: M.PC 07:45
PROVIDERS: ATTEND Physical Medicine & Rehabilitation
DX: M47.26 Other spondylosis with radiculopathy, lumbar region (principal); M51.17 Intervertebral disc disorders with radiculopathy, lumbosacral region

== ENCOUNTER 2020-04-20 23:01 | Inpatient (IN) | payer MEDICARE, OTHER ==
[~2020-04-20] VITALS: Ht 165.1 cm; Wt 93.9 kg
--- NOTE | ~2020-04-20 | CON ---
[address] [address] CONSULTATION Name: RACHNAVISHAL JOE Room: [address] ADM IN M.R.#: [id number] Admission: 04/21/20 Attend Phys: Jeremy Louise MD Discharge: Date of : 52 Report #: [id number] THIS REPORT FOR: //name// cc: Rubin Rodriguez DO Rubin Rodriguez DO ~ DATE OF SERVICE: 04/21/2020 HISTORY OF PRESENT ILLNESS: This is a 69-year-old male patient who was seen by me for any neurological etiology for the patient's right leg weakness. The patient gives a pretty unusual history that in December of this year, he had a rash in the right upper extremity, which was like a bad sunburn. Then, he went to an urgent care clinic who diagnosed him with shingle, and gave him antiviral. He went to his family doctor and he continued antiviral, but was not certain about the diagnosis of shingle. Now, the patient is weak in all 4 extremities. His right lower extremity is markedly weak. Rather, there is barely any movement and I am not sure how he is walking with that. He admits that he falls down. His left lower extremity has some strength, but he is still pretty significantly weak there. He believes his upper extremities are also weak. He has sensation on both sides, but he thinks he has a pretty unusual sensation on the right side there is somewhat hyper compared to the left side. He was admitted because he fell and probably had a fracture. He has taken some oxycodone and he has taken that in the past, but not on a regular basis. REVIEW OF SYSTEMS: Positive for atrial fibrillation. He is on anticoagulation for that. He does have a high cholesterol and recently had prostate carcinoma with radiation. That was his relevant 14-point review of system. PAST MEDICAL HISTORY: Positive for prostate cancer. FAMILY HISTORY: Unremarkable. SOCIAL HISTORY: He used to smoke and he drinks about 5-6 alcoholic drink every night. PHYSICAL EXAMINATION: Indicate he is alert. He is responsive. He can follow simple and complex command. His speech looks intact. Cranial nerve examination 2-12 looks mostly unremarkable. He is weak in the upper extremities, mostly in the proximal muscles. He is markedly weak in both lower extremities. In the right lower extremity, he has a cast and he is difficult to examine. He barely has any movement there, but he does have minimal movement. The left one he can move when gravity is excluded. He has a position sense on both sides. His touch is present on both sides, but he said it looks hyper on the right side. I did not check the pain and a plan to do it tomorrow. His reflex in the right side is difficult to elicit, but he has a cast there. The left [place], [place] [address] CONSULTATION Name: VISHAL BRISCOE Room: [address] IN ..#: [id number] Admission: 04/21/20 Attend Phys: Jeremy Louise MD Discharge: Date of : 52 Report #: [id number]. I cannot tell about plantars. We will repeat it tomorrow. He has no cerebellar sign in the upper extremities. There is no meningeal sign. He has no respiratory difficulty. He is a well-developed individual. His blood pressure is 132/91, respirations 17, pulse is 110, temperature is 98.7. IMPRESSION: This patient needs further workup to determine the etiology of the patient's symptoms. Because of history of prostate cancer, we need to consider the diagnosis of polymyositis or dermatomyositis. I considered the diagnosis of ALS, but the course is little bit faster and other diagnoses need to be excluded before that diagnosis is included. 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 We need to exclude Lyme disease. He had an MRI of the spine, but I do not know what portion of the spine was done and I will try to get those records. He has an appointment with a neurosurgeon. Spine pathology has to be pretty big to explain his symptoms and it is not the common cause because his sensation are more or less intact, but that also has to be excluded. I discussed with him that first thing we need is an EMG. Then we need MRI, which is going to be extensive. Then we will need further workup on him. Unfortunately, many of this workup cannot be done here because we do not have any machine and either he needs to go to a tertiary care center or he needs to get at least some of the workup as an outpatient. I spent more than 50 minutes of my time taking care of this patient today and majority was spent counseling and coordinating. By: 1844 19Irvin Lance MD /nt
[~2020-04-20 23:01] MED LIST changes: +ROXICODONE5 M2 PO
[2020-04-20 23:05] VITALS: BP 154/96
[2020-04-20] MEDS ORDERED: CYCLOBENZAPRINE10 MG PO (23:25)
[2020-04-20 23:53] LABS: ABSOLUTE EOSINOPHILS 0.1 thou/uL (0.0-0.7); ABSOLUTE LYMPHOCYTES 0.8 thou/uL (0.8-5.3); ABSOLUTE MONOCYTES 0.7 thou/uL (0.0-1.2); ABSOLUTE NEUTROPHILS 5.4 thou/uL (1.6-8.1); BASOPHILS 0.3 %; EOSINOPHILS 1.2 %; HEMATOCRIT 37.6 % (42.0-52.0); HEMOGLOBIN 13.3 gm/dL (14.0-18.0); LYMPHOCYTES 11.7 %; MCH 32.9 pg (26.0-34.0); MCHC 35.4 g/dL (28.0-37.0); MCV 92.9 fL (80.0-100.0); MONOCYTES 10.2 %; MPV 7.7 fl. (7.2-11.1); NUCLEATED RBCS 0 /100WBC; PLATELET COUNT* 150 thou/uL (150-400); POLYS 76.6 %; RBC 4.04 mil/uL (4.50-6.00); RDW-CV 13.3 % (10.5-14.5); WBC 7.1 thou/uL (4.0-11.0)
[2020-04-20 23:55] LABS: CREATININE 1.1 mg/dL (0.6-1.3)
[2020-04-21] LABS: INR 1.1; PROTIME 11.3 Seconds (9.20-11.50)
[2020-04-21 03:24] VITALS: BP 159/72
[2020-04-21 04:32] VITALS: BP 167/97
[2020-04-21] MEDS ORDERED: DURAGESIC1 EAC4 TRANSDERM (05:05)
[2020-04-21 07:45] VITALS: BP 145/95
[2020-04-21 16:08] VITALS: BP 132/91
[2020-04-21 20:00] VITALS: BP 153/90
[2020-04-22 07:30] VITALS: BP 169/100
[2020-04-22 15:38] VITALS: BP 147/89
[2020-04-22 20:00] VITALS: BP 148/88
[2020-04-23 00:38] VITALS: BP 150/90
[2020-04-23 08:23] VITALS: BP 133/89
[2020-04-23 16:00] VITALS: BP 130/73
[2020-04-23 19:45] VITALS: BP 123/78
[2020-04-24 08:10] VITALS: BP 146/88
[2020-04-24 13:26] LABS: ALBUMIN 3.1 g/dL (3.4-5.0); CALCIUM 8.6 mg/dL (8.5-10.1); POTASSIUM 3.6 mmol/L (3.5-5.1); TOTAL BILIRUBIN 1.2 mg/dL (<0.1-1.0); TOTAL PROTEIN 6.9 g/dL (6.4-8.2)
[2020-04-24 16:00] VITALS: BP 148/72
[2020-04-24 17:20] LABS: URINE BLOOD NEGATIVE (Negative); URINE CLARITY CLEAR; URINE COLOR YELLOW; URINE GLUCOSE-RANDOM NEGATIVE (Negative); URINE KETONES 1+ (Negative); URINE LEUKOCYTES NEGATIVE (Negative); URINE NITRITE NEGATIVE (Negative); URINE PROTEIN NEGATIVE (Negative); URINE SPECIFIC GRAVITY >= 1.030 (1.005-1.030)
[2020-04-24 17:21] LABS: ICTOTEST (BILI CONFIRMATORY) Negative (Negative); URINE BILIRUBIN 1+ (Negative)
[2020-04-24 19:40] VITALS: BP 144/78
[2020-04-25 08:20] VITALS: BP 150/90
[2020-04-25] MEDS ORDERED: VITCB500GO PO (12:50)
[2020-04-25] MEDS ORDERED: PYRIDOXINE HCL50 MG PO (12:51)
[2020-04-25] MEDS ORDERED: VITAMIN D325 MCG PO (12:51)
[2020-04-25] MEDS ORDERED: VITAMIN B-1100 M1 PO (12:51)
[2020-04-25 17:06] VITALS: BP 121/75
[2020-04-25 20:30] VITALS: BP 129/81
[2020-04-26 07:30] VITALS: BP 142/86
[2020-04-26 16:54] VITALS: BP 142/94
[2020-04-26 20:45] VITALS: BP 142/85
[2020-04-27 08:00] VITALS: BP 154/96
[2020-04-27 16:45] VITALS: BP 134/84
[2020-04-28 08:00] VITALS: BP 152/96
[2020-04-28 17:08] VITALS: BP 151/94
[2020-04-28 19:57] VITALS: BP 132/80
[2020-04-29 05:57] LABS: ABSOLUTE BASOPHILS 0.1 thou/uL (0.0-0.2); ABSOLUTE EOSINOPHILS 0.1 thou/uL (0.0-0.7); ABSOLUTE LYMPHOCYTES 1.1 thou/uL (0.8-5.3); ABSOLUTE MONOCYTES 0.6 thou/uL (0.0-1.2); ABSOLUTE NEUTROPHILS 5.6 thou/uL (1.6-8.1); BASOPHILS 0.9 %; EOSINOPHILS 1.9 %; HEMATOCRIT 34.3 % (42.0-52.0); HEMOGLOBIN 12.2 gm/dL (14.0-18.0); LYMPHOCYTES 14.5 %; MCH 31.9 pg (26.0-34.0); MCHC 35.6 g/dL (28.0-37.0); MCV 89.7 fL (80.0-100.0); MONOCYTES 8.3 %; MPV 7.3 fl. (7.2-11.1); NUCLEATED RBCS 0 /100WBC; PLATELET COUNT* 269 thou/uL (150-400); POLYS 74.4 %; RBC 3.83 mil/uL (4.50-6.00); RDW-CV 13.3 % (10.5-14.5); WBC 7.5 thou/uL (4.0-11.0)
[2020-04-29 06:04] LABS: APTT 24.9 Seconds (25.0-31.3); INR 1.1; PROTIME 11.2 Seconds (9.20-11.50)
[2020-04-29 07:20] VITALS: BP 149/94
[2020-04-29 11:10] VITALS: BP 149/94
[2020-04-29 16:00] VITALS: BP 136/83
[2020-04-29 16:16] VITALS: BP 141/92
--- NOTE | 2020-04-29 17:01 | EKG ---
[place] [address] ELECTROCARDIOGRAM REPORT Name: VISHAL BRISCOE Room: [address] ADM IN M.R.#: [id number] Admission: 04/21/20 Attend Phys: Jeremy Louise, Discharge: Date of : 52 Date of Service: 04/29/20 1217 Report #: [id number] THIS REPORT FOR: //name// [facility] Test Date: 2020-04-29 Test Time: 12:17:34 Pat Name: VISHAL BRISCOE Department: Room: [address] Gender: M Manager Lvn: JOSELO : 1950 Requested By: Austyn Jung Order Number: [id number] Leslie MD: Chris Mcclure Measurements Intervals [place] Rate: 111 P: 37 WI: 145 QRS: -98 QRSD: 138 T: 6 QT: 359 QTc: 488 Interpretive Statements Sinus tachycardia RBBB and LAFB Borderline ST elevation, lateral leads Compared to ECG 10/13/2019 15:43:34 ST (T wave) deviation now present Electronically Signed On 04-29-2020 17:01:09 EDGE BURNISHER UPPERS by Chris Mcclure [email or web address] <ELECTRONICALLY SIGNED> By: Chris Mcclure MD, FAC 04/29/20 1701 1217 1217 Chris Mcclure MD, [facility] /EPI
[2020-04-29 20:20] VITALS: BP 121/89
[2020-04-30 00:30] VITALS: BP 119/67
--- NOTE | 2020-04-30 07:07 | OP ---
[address] [address] OPERATIVE REPORT Name: VISHAL BRISCOE Room: [address] IN M.R.#: [id number] Admission: 04/21/20 Attend Phys: Jeremy Louise MD Discharge: Date of : 52 Report #: [id number] THIS REPORT FOR: cc: Jennifer,Rubin Aguayo,Rubin MÁRQUEZ ~ Austyn Jung DO PREOPERATIVE DIAGNOSES: 1. High ankle syndesmosis injury on the right ankle. 2. History also of foot drop and neuropathy of lower extremities. POSTOPERATIVE DIAGNOSES: 1. High ankle syndesmosis injury on the right ankle. 2. History also of foot drop and neuropathy of lower extremities. SURGERY PERFORMED: Arthrex syndesmosis internal fixation with 2 TightRopes in the plate. SURGEON: Austyn Jung DO [employer] INSPECTOR: Martín ANESTHESIA: General anesthetic with nerve block. ANTIBIOTICS: The patient did receive Ancef 2 grams IV piggyback preoperatively. SPECIMENS: None. COMPLICATIONS: None. DRAINS: None. ESTIMATED BLOOD LOSS: Minimal. GROSS FINDINGS: Prior to surgery, this gentleman had a fall injury sustained a proximal fibular fracture with a syndesmosis widening and pain across the ankle. He has had a recent history, also have a foot drop. It is really unknown etiology, but he does have neuropathy of lower extremities as well. The patient has post-internal fixation with syndesmosis demonstrated very stable since syndesmosis through a cotton external rotation test. SURGERY IN DETAIL: This gentleman was taken to the operating room and placed on table, given the benefit of general anesthetic. He did have a well-padded tourniquet high to the right thigh region. He underwent a chlorhexidine prep and sterile draping for right lower extremity surgery. Timeout was called and verified by everyone in the room for the right ankle. Surgery began with an Esmarch in the extremity at 300 mmHg. Tourniquet was inflated[place] [address] OPERATIVE REPORT Name: VISHAL BRISCOE Room: [address] IN ..#: [id number] Admission: 04/21/20 Attend Phys: Jeremy Louise MD Discharge: Date of : 52 Report #: [id number] longitudinal incision near the syndesmosis, right over the fibula with a 15-blade scalpel through skin and subcutaneous tissues. Blunt dissection was carried down to the fibula, which was exposed using by sharp technique and the plate. At this point in time, was put on there, looking for appropriate position for the syndesmosis TightRopes. A K-wire held the plate in place. I did initially drilled the proximal syndesmosis TightRope appropriately crossed it, tightened it and then without fully disengaging it to release it. I placed a second TightRope and get ready to tighten it, but I did a cross clamp to clamp down the syndesmosis and then both of these TightRopes were tightened in a secured fashion and excess suture was cut. Once this was all accomplished K-wire was removed. I copiously irrigated with saline. Final x-rays were taken. Deep layer was closed with 2-0 Vicryl in inverted fashion, subcutaneous tissues same running 2-0 nylon skin. Xeroform, 4 x 4s, compression dressing was placed across the right ankle region transferred off the table, taken to recovery in stable condition. I attest I was present for all critical aspects of surgery. Needle, instrument, sponge counts correct. <ELECTRONICALLY SIGNED> By: Austyn Jung DO 04/30/20 [id number] Jung DO /nt
[2020-04-30 07:10] VITALS: BP 137/98
[2020-04-30 12:07] VITALS: BP 103/59
[2020-04-30 16:38] VITALS: BP 125/80
[2020-04-30 20:07] VITALS: BP 136/79
[2020-04-30 23:58] VITALS: BP 132/85
[2020-05-01 02:06] LABS: B.burgdorf.IgG Negative (()); B.burgdorf.IgM Negative (())
[2020-05-01 08:10] VITALS: BP 124/78
[2020-05-01 08:42] VITALS: BP 124/78
[2020-05-01] MEDS ORDERED: VITAMIN D325 MC1 PO (17:58)
[2020-05-01] MEDS ORDERED: ASCORBIC ACID500 MG PO (17:59)
[2020-05-01] MEDS ORDERED: VITAMIN B-1100 M2 PO (18:01)
[2020-05-01] MEDS ORDERED: NEURO-K50 MG PO (18:01)
== END 2020-05-01 16:40 | DRG 493 ==
LOC: M.ERS 23:01 → M.3W 04-21 02:37 → M.TBA-ER 04-21 02:37 → M.3W 04-21 03:38
PROVIDERS: Emergency Medicine; Internal Medicine; Orthopaedic Surgery; Psychiatry & Neurology Neuromuscular Medicine; ADMIT Internal Medicine; ATTEND Internal Medicine
PROC: 2W3QX1Z Immobilization of Right Lower Leg using Splint (ICD-10-PCS; 2020-04-21)
PROC: 0QSG04Z Reposition Right Tibia with Internal Fixation Device, Open Approach (ICD-10-PCS; principal; 2020-04-29)
DX: S82.101A Unspecified fracture of upper end of right tibia, initial encounter for closed fracture (principal); D68.2 Hereditary deficiency of other clotting factors; E78.00 Pure hypercholesterolemia, unspecified; R25.1 Tremor, unspecified; R29.810 Facial weakness; G62.9 Polyneuropathy, unspecified; Z86.711 Personal history of pulmonary embolism; Z86.718 Personal history of other venous thrombosis and embolism; Z85.46 Personal history of malignant neoplasm of prostate; Z92.3 Personal history of irradiation; Z87.891 Personal history of nicotine dependence; Z79.899 Other long term (current) drug therapy; W18.39XA Other fall on same level, initial encounter; Y93.89 Activity, other specified; Y92.89 Other specified places as the place of occurrence of the external cause; Y99.8 Other external cause status; Z20.828 Contact with and (suspected) exposure to other viral communicable diseases

== ENCOUNTER 2020-05-01 14:21 | Inpatient (IN) | payer MEDICARE, OTHER ==
[~2020-05-01] VITALS: Ht 167.6 cm; Wt 88.0 kg
[~2020-05-01 14:21] MED LIST changes: +CYCLOBENZAPRINE10 MG PO; +PYRIDOXINE HCL50 MG PO; +VITAMIN B-1100 M1 PO; +VITAMIN D325 MCG PO; +VITCB500GO PO
[2020-05-01 17:00] VITALS: BP 128/81
[2020-05-01] MEDS ORDERED: VITAMIN D325 MC1 PO (17:58)
[2020-05-01] MEDS ORDERED: ASCORBIC ACID500 MG PO (17:59)
[2020-05-01] MEDS ORDERED: VITAMIN B-1100 M2 PO (18:01)
[2020-05-01] MEDS ORDERED: NEURO-K50 MG PO (18:01)
[2020-05-01 20:00] VITALS: BP 154/79
[2020-05-02 05:16] LABS: HEMOGLOBIN 12.2 gm/dL (14.0-18.0); MCH 31.7 pg (26.0-34.0); MCHC 34.8 g/dL (28.0-37.0); MCV 91.2 fL (80.0-100.0); MPV 7.2 fl. (7.2-11.1); RBC 3.83 mil/uL (4.50-6.00); RDW-CV 13.7 % (10.5-14.5); WBC 7.2 thou/uL (4.0-11.0)
[2020-05-02 05:46] LABS: CALCIUM 8.4 mg/dL (8.5-10.1); CREATININE 0.8 mg/dL (0.6-1.3); POTASSIUM 3.8 mmol/L (3.5-5.1)
[2020-05-02 08:00] VITALS: BP 135/87
[2020-05-02 20:45] VITALS: BP 141/92
[2020-05-03 08:30] VITALS: BP 147/90
[2020-05-03 19:00] VITALS: BP 155/96
[2020-05-04 08:00] VITALS: BP 123/89
[2020-05-04 20:00] VITALS: BP 131/89
[2020-05-05 08:08] VITALS: BP 134/91
[2020-05-05 20:00] VITALS: BP 158/93
[2020-05-06 11:44] LABS: URINE BILIRUBIN NEGATIVE (Negative); URINE BLOOD 1+ (Negative); URINE CLARITY CLEAR; URINE COLOR YELLOW; URINE GLUCOSE-RANDOM NEGATIVE (Negative); URINE KETONES NEGATIVE (Negative); URINE LEUKOCYTES-REFLEX NEGATIVE (Negative); URINE NITRITE-REFLEX NEGATIVE (Negative); URINE PROTEIN NEGATIVE (Negative); URINE UROBILINOGEN 0.2 E.U./dl (0.2-1.0)
[2020-05-06 11:53] LABS: SQUAMOUS 0-3 Few /LPF (0-3); URINE RBC 3-10 Few /HPF (0-2); URINE WBC-REFLEX None Seen /HPF (0-5)
[2020-05-06 11:54] LABS: BACTERIA-REFLEX 1-9 Few /HPF (None Seen); CASTS None Seen /LPF (None Seen); CRYSTALS None Seen /LPF (None Seen); MUCUS 0-3 Light strn/LPF (None Seen)
[2020-05-06 14:42] VITALS: BP 135/80
[2020-05-06 19:00] VITALS: BP 152/91
[2020-05-07 04:21] LABS: HEMATOCRIT 40.9 % (42.0-52.0); HEMOGLOBIN 14.3 gm/dL (14.0-18.0); MCH 31.8 pg (26.0-34.0); MCV 90.8 fL (80.0-100.0); RBC 4.5 mil/uL (4.50-6.00); RDW-CV 13.5 % (10.5-14.5); WBC 10.8 thou/uL (4.0-11.0)
[2020-05-07 04:24] LABS: CALCIUM 9.1 mg/dL (8.5-10.1); CREATININE 0.9 mg/dL (0.6-1.3); MAGNESIUM 2.3 mg/dL (1.8-2.4); POTASSIUM 4.4 mmol/L (3.5-5.1)
[2020-05-07 08:00] VITALS: BP 138/86
[2020-05-07 19:00] VITALS: BP 123/78
[2020-05-08 09:00] VITALS: BP 142/93
[2020-05-08 20:00] VITALS: BP 118/64
[2020-05-09 09:00] VITALS: BP 107/60
[2020-05-09 19:00] VITALS: BP 119/84
[2020-05-10 11:48] VITALS: BP 116/64
[2020-05-10 19:50] VITALS: BP 109/67
[2020-05-11 08:00] VITALS: BP 115/78
[2020-05-11 19:45] VITALS: BP 121/75
[2020-05-12 07:58] VITALS: BP 129/61
[2020-05-12 19:00] VITALS: BP 107/74
[2020-05-13 07:46] VITALS: BP 112/68
[2020-05-13 20:00] VITALS: BP 132/86
[2020-05-14 04:23] LABS: HEMATOCRIT 35.1 % (42.0-52.0); HEMOGLOBIN 12.3 gm/dL (14.0-18.0); MCH 31.3 pg (26.0-34.0); MCV 89.5 fL (80.0-100.0); MPV 8.5 fl. (7.2-11.1); RBC 3.92 mil/uL (4.50-6.00); RDW-CV 13.6 % (10.5-14.5); WBC 10.7 thou/uL (4.0-11.0)
[2020-05-14 04:30] LABS: CREATININE 0.9 mg/dL (0.6-1.3); POTASSIUM 4.7 mmol/L (3.5-5.1)
[2020-05-14 08:12] VITALS: BP 109/73
[2020-05-14 20:00] VITALS: BP 122/75
[2020-05-15 08:00] VITALS: BP 118/76
[2020-05-15 20:00] VITALS: BP 121/73
[2020-05-16 08:30] VITALS: BP 97/61
[2020-05-16 20:00] VITALS: BP 109/55
[2020-05-17 04:52] LABS: ABSOLUTE BASOPHILS 0.1 thou/uL (0.0-0.2); ABSOLUTE EOSINOPHILS 0.2 thou/uL (0.0-0.7); ABSOLUTE LYMPHOCYTES 0.9 thou/uL (0.8-5.3); ABSOLUTE MONOCYTES 0.6 thou/uL (0.0-1.2); ABSOLUTE NEUTROPHILS 6.2 thou/uL (1.6-8.1); BASOPHILS 1.2 %; EOSINOPHILS 2.4 %; HEMATOCRIT 32.4 % (42.0-52.0); HEMOGLOBIN 11.3 gm/dL (14.0-18.0); LYMPHOCYTES 10.9 %; MCHC 34.9 g/dL (28.0-37.0); MCV 88.9 fL (80.0-100.0); MONOCYTES 7.1 %; MPV 8.4 fl. (7.2-11.1); NUCLEATED RBCS 0 /100WBC; PLATELET COUNT* 161 thou/uL (150-400); POLYS 78.4 %; RBC 3.64 mil/uL (4.50-6.00); RDW-CV 13.8 % (10.5-14.5); WBC 7.9 thou/uL (4.0-11.0)
[2020-05-17 05:25] LABS: CALCIUM 8.8 mg/dL (8.5-10.1); CREATININE 0.8 mg/dL (0.6-1.3); POTASSIUM 4.1 mmol/L (3.5-5.1)
[2020-05-17 07:45] VITALS: BP 107/60
[2020-05-17 19:53] VITALS: BP 123/74
[2020-05-18 08:15] VITALS: BP 113/77
[2020-05-18 19:00] VITALS: BP 111/74
[2020-05-19 07:45] VITALS: BP 109/70
[2020-05-19 19:35] VITALS: BP 117/69
[2020-05-20 08:00] VITALS: BP 122/65
[2020-05-20 13:29] LABS: URINE BILIRUBIN NEGATIVE (Negative); URINE BLOOD 3+ (Negative); URINE CLARITY CLEAR; URINE COLOR YELLOW; URINE GLUCOSE-RANDOM NEGATIVE (Negative); URINE KETONES NEGATIVE (Negative); URINE LEUKOCYTES-REFLEX 3+ (Negative); URINE NITRITE-REFLEX NEGATIVE (Negative); URINE PROTEIN 3+ (Negative); URINE SPECIFIC GRAVITY >= 1.030 (1.005-1.030); URINE UROBILINOGEN 0.2 E.U./dl (0.2-1.0)
[2020-05-20 13:45] LABS: SQUAMOUS 0-3 Few /LPF (0-3); URINE RBC >20 Many /HPF (0-2); URINE WBC-REFLEX >25 Many /HPF (0-5)
[2020-05-20 13:46] LABS: CASTS None Seen /LPF (None Seen); CRYSTALS None Seen /LPF (None Seen); MUCUS None Seen strn/LPF (None Seen)
[2020-05-20 19:00] VITALS: BP 110/64
[2020-05-20] MEDS ORDERED: GABAPENTIN 100100 MG PO (22:32)
[2020-05-20] MEDS ORDERED: BACTRIM DS TAB1 EACH PO (22:32)
[2020-05-20] MEDS ORDERED: LEVSIN0.125 MG SUBLING (22:32)
[2020-05-20] MEDS ORDERED: FLOMAX0.4 MG PO (22:32)
[2020-05-20] MEDS ORDERED: LYRICA 75 MG CA75 MG PO (22:32)
[2020-05-21 04:43] LABS: HEMATOCRIT 30.8 % (42.0-52.0); HEMOGLOBIN 10.5 gm/dL (14.0-18.0); MCV 88.3 fL (80.0-100.0); MPV 7.8 fl. (7.2-11.1); RBC 3.48 mil/uL (4.50-6.00); WBC 7.5 thou/uL (4.0-11.0)
[2020-05-21 05:01] LABS: CALCIUM 8.8 mg/dL (8.5-10.1); CREATININE 0.8 mg/dL (0.6-1.3); POTASSIUM 4.2 mmol/L (3.5-5.1)
[2020-05-21 08:00] VITALS: BP 93/55
[2020-05-21 10:25] VITALS: BP 110/64
[2020-05-21] MEDS ORDERED: LYRICA 75 MG CA75 MG PO (11:30)
[2020-05-21] MEDS ORDERED: AMOXICILLIN 50500 MG PO (12:59)
[2020-05-21 20:00] VITALS: BP 129/70
[2020-05-22 08:14] VITALS: BP 111/71
[2020-05-22 21:00] VITALS: BP 109/70
[2020-05-23 08:00] VITALS: BP 118/60
[2020-05-23 13:01] VITALS: BP 110/64
[2020-05-23] MEDS ORDERED: CYCLOBENZAPRINE10 MG PO ×2 (13:13→13:15)
== END 2020-05-23 16:52 | disposition home health service (06) | DRG 563 ==
LOC: M.REH 14:21
PROVIDERS: Internal Medicine; ADMIT Physical Medicine & Rehabilitation; ATTEND Physical Medicine & Rehabilitation
DX: S82.201A Unspecified fracture of shaft of right tibia, initial encounter for closed fracture (principal); D68.51 Activated protein C resistance; N39.0 Urinary tract infection, site not specified; R53.81 Other malaise; W18.39XA Other fall on same level, initial encounter; I48.91 Unspecified atrial fibrillation; R29.6 Repeated falls; M21.371 Foot drop, right foot; E66.01 Morbid (severe) obesity due to excess calories; E78.5 Hyperlipidemia, unspecified; R31.9 Hematuria, unspecified; N32.0 Bladder-neck obstruction; G89.29 Other chronic pain; E78.00 Pure hypercholesterolemia, unspecified; G57.31 Lesion of lateral popliteal nerve, right lower limb; B95.2 Enterococcus as the cause of diseases classified elsewhere; R39.15 Urgency of urination; Y93.89 Activity, other specified; Y92.89 Other specified places as the place of occurrence of the external cause; Y99.8 Other external cause status; Z86.711 Personal history of pulmonary embolism; Z86.718 Personal history of other venous thrombosis and embolism; Z85.46 Personal history of malignant neoplasm of prostate; Z68.31 Body mass index [BMI] 31.0-31.9, adult; Z79.899 Other long term (current) drug therapy; Z92.3 Personal history of irradiation; Z87.891 Personal history of nicotine dependence; Z79.01 Long term (current) use of anticoagulants

== ENCOUNTER → 2021-04-17 | Outpatient (CLI) | payer MEDICARE, OTHER ==
[~2021-04-17] MED LIST changes: +AMOXICILLIN 50500 MG PO; +ASCORBIC ACID500 MG PO; +BACTRIM DS TAB1 EACH PO; +FLOMAX0.4 MG PO; +GABAPENTIN 100100 MG PO; +LEVSIN0.125 MG SUBLING; +LYRICA 75 MG CA75 MG PO; +NEURO-K50 MG PO; +VITAMIN B-1100 M2 PO; +VITAMIN D325 MC1 PO
== END ==
LOC: M.ULTRA 12:36
PROVIDERS: ATTEND Family Medicine
DX: M79.604 Pain in right leg (principal); M79.605 Pain in left leg; M79.89 Other specified soft tissue disorders